=== PATIENT | female | born 1965 | race Caucasian/White ===

== ENCOUNTER 2017-03-01 01:19 | Observation (INO) | payer BC ==
[~2017-03-01] VITALS: Ht 165.1 cm; Wt 77.9 kg
[~2017-03-01 01:19] MED LIST: ANTIVERT25 MG PO; COLACE100 MG PO; FLEXERIL10 MG PO; GLUCOPHAGE500 MG PO; LATANOPROST2.5 ML BOTH EYES; MOTRIN800 MG PO; NAPROSYN500 MG PO; PEN-VEE K,VEET500 MG PO; PEPCID20 MG PO; REGLAN10 MG PO; TRAMADOL HCL50 MG PO; ULTRAM50 MG PO; VICODIN,LORT1 TABLET PO; ZOFRAN ODT4 MG PO; ZOFRAN4 MG PO
[2017-03-01 01:58] LABS: HEMATOCRIT 41.9 % (36.0-46.0); MCH 29.4 PG (29.0-34.0); MCHC 34.1 G/DL (30.0-36.0); MCV 86.2 FL (83-99); MEAN PLAT.VOLUME 9.8 uM^3 (9.5-12.4); PLATELET COUNT 280 K/uL (156-360); RBC DIS.WIDTH-CV 12.5 % (11.8-14.6); RBC DIS.WIDTH-SD 39.3 % (39-53); RED BLOOD COUNT 4.86 M/uL (3.80-5.20); WHITE BLOOD COUNT 7.2 K/uL (4.1-10.2)
[2017-03-01 02:12] LABS: CHLORIDE 101 mEq/L (99-109); SODIUM 138 mEq/L (136-147)
[2017-03-01 02:14] LABS: GLUCOSE 155 mg/dL (70-99)
[2017-03-01 02:16] LABS: ANION GAP 10 MEQ/L (2-14); TOTAL BILIRUBIN 0.4 mg/dL (0.0-1.0)
[2017-03-01 02:18] LABS: ALKALINE PHOSPHATASE 80 IU/L (3-129); GFR ESTIMATE (CALCULATED) > 59 mL/min/
[2017-03-01 02:19] LABS: UREA NITROGEN (BUN) 12 mg/dL (9-23)
[2017-03-01 02:28] LABS: QUANTITATIVE HCG < 4.0 MIU/ML
[2017-03-01 03:39] LABS: LIPASE 20 U/L (1.0-51.0)
[2017-03-01 05:15] LABS: ADD MIUA? YES; BILIRUBIN NEGATIVE; BLOOD NEGATIVE; COLOR YELLOW ((YELLOW)); GLUCOSE (STRIP) NEGATIVE; KETONES 20; LEUKOCYTES NEGATIVE; NITRITE NEGATIVE; PROTEIN (STRIP) NEGATIVE; SPECIFIC GRAVITY 1.017 (1.000-1.030); UROBILINOGEN 0.2 MG/DL (0.2-1.0)
[2017-03-01 05:17] LABS: BACTERIA NONE SEEN /HPF; EPITHELIAL CELLS RARE /HPF; MUCUS TRACE /LPF; RED BLOOD CELLS 0-5 /HPF (0-5); UCUL ADDED? NO; WHITE BLOOD CELLS 0-5 /HPF (0-5)
[2017-03-01 05:43] LABS: POINT-OF-CARE METER ID UU13113702
[2017-03-01 07:21] VITALS: BP 118/58
[2017-03-01 07:30] VITALS: BP 107/60
[2017-03-01 08:43] LABS: POINT-OF-CARE METER ID UU13113700
[2017-03-01] MEDS ORDERED: METFORMIN HCL500 M1 PO (10:22)
[2017-03-01] MEDS ORDERED: IBUPROFEN600 MG PO (10:23)
[2017-03-01] MEDS ORDERED: LANTUS 3 M100 UNITS1 SC (10:23)
[2017-03-01] MEDS ORDERED: DAILY VITE1 EAC1 PO (10:24)
[2017-03-01] MEDS ORDERED: DICYCLOMINE HCL10 MG PO (12:10)
[2017-03-01] MEDS ORDERED: DOCUSATE SODIU100 MG PO (12:10)
[2017-03-01] MEDS ORDERED: ZOFRAN4 MG PO (12:11)
[2017-03-01 12:33] LABS: POINT-OF-CARE METER ID UU13113700
[2017-03-01 12:37] VITALS: BP 121/62
== END 2017-03-01 13:45 | disposition home or self-care (01) ==
LOC: EME 01:19 → EDOF 05:34 → 5WEST 07:07
PROVIDERS: Hospitalist
DX: R10.84 Generalized abdominal pain (principal); R11.0 Nausea; E66.9 Obesity, unspecified; E11.9 Type 2 diabetes mellitus without complications; K59.00 Constipation, unspecified; Z87.891 Personal history of nicotine dependence; Z79.4 Long term (current) use of insulin; Z80.0 Family history of malignant neoplasm of digestive organs
CPT/HCPCS: 74176; 80053; 81003; 82948; 83690; 84702; 85027; 99281; 99285; G0378; J1650; J2405; J7030; S0028

== ENCOUNTER 2017-10-01 16:52 | Emergency (ER) | payer OTHER ==
[~2017-10-01] VITALS: Ht 162.6 cm; Wt 74.6 kg
[~2017-10-01 16:52] MED LIST changes: +DAILY VITE1 EAC1 PO; +DICYCLOMINE HCL10 MG PO; +DOCUSATE SODIU100 MG PO; +IBUPROFEN600 MG PO; +LANTUS 3 M100 UNITS1 SC; +METFORMIN HCL500 M1 PO
[2017-10-01 17:44] LABS: HEMATOCRIT 38.9 % (36.0-46.0); HEMOGLOBIN 13.3 G/DL (11.9-15.5); MCH 29.2 PG (29.0-34.0); MCHC 34.2 G/DL (30.0-36.0); MCV 85.5 FL (83-99); PLATELET COUNT 295 K/uL (156-360); RBC DIS.WIDTH-CV 11.9 % (11.8-14.6); RBC DIS.WIDTH-SD 37.1 % (39-53); RED BLOOD COUNT 4.55 M/uL (3.80-5.20); WHITE BLOOD COUNT 9.6 K/uL (4.1-10.2)
[2017-10-01 17:57] LABS: CHLORIDE 101 mEq/L (99-109); POTASSIUM 4.8 mEq/L (3.7-5.4); SODIUM 139 mEq/L (136-147)
[2017-10-01 17:59] LABS: GLUCOSE 176 mg/dL (70-99)
[2017-10-01 18:02] LABS: CREATININE 0.7 mg/dL (0.6-1.3); GFR ESTIMATE (CALCULATED) > 59 mL/min/
[2017-10-01 18:03] LABS: UREA NITROGEN (BUN) 7 mg/dL (9-23)
[2017-10-01 19:29] LABS: D-DIMER ELISA < 150.00 ng/mLDDU (<230)
[2017-10-01] MEDS ORDERED: PREDNISONE10 M1 PO (20:32)
[2017-10-01 21:34] VITALS: BP 151/89
== END 2017-10-01 21:35 | disposition home or self-care (01) ==
LOC: EME 16:52
PROVIDERS: Physician Assistant
DX: J06.9 Acute upper respiratory infection, unspecified (principal); F17.200 Nicotine dependence, unspecified, uncomplicated; E11.9 Type 2 diabetes mellitus without complications; Z79.4 Long term (current) use of insulin; F41.9 Anxiety disorder, unspecified; H40.9 Unspecified glaucoma; Z88.8 Allergy status to other drugs, medicaments and biological substances
CPT/HCPCS: 71046; 80048; 85027; 85379; 87502; 94640; 99281; 99283